=== PATIENT | male | born 1965 | race Caucasian/White ===

== ENCOUNTER 2021-05-10 15:27 | Emergency (ER) | payer OTHER ==
--- OUTSIDE RECORDS SUMMARY | 2021-05-10 15:31 | XMS REPORT | Continuity of Care Document ---
:1965 Author Organization [facility] t Address [address] [place] [address] Care Team Providers Name Role Phone Mg Abraham MD Attending Clinician Doctor Unassigned, [place] Attending Clinician Unavailable 2, Lab Attending Clinician Unavailable MANUEL Attending Clinician Unavailable MANUEL Attending Clinician Unavailable Payam ZHOU Attending Clinician Unavailable MANUEL Admitting Clinician Unavailable DR RAJAT Admitting Clinician Unavailable ALEXANDRU Admitting Clinician Unavailable Payam ZHOU Admitting Clinician Unavailable Payers Payer Name Policy Type Policy Number Effective Date Expiration Date S ource Problems Condition Condition Condition Status Onset Resolution Last Treating Co mments Source Name Details Category Date Date Treatment Clinician Date Vertigo Vertigo Problem Active [facility] 07-02 [facility] - 00:00: Memoria 00 l (LUF/LI V/SA) Dizziness Dizziness Problem Active [facility] - [facility] Memoria 00 l (LUF/LI V/SA) ACUTE ACUTE Problem Active [facility] St KIDNEY KIDNEY [facility] - INJURY INJURY Memoria l (LUF/LI V/SA) Chronic Chronic Problem Active [facility] St 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 disease disease l (LUF/LI V/SA) Morbid Morbid Problem Active [facility] St obesity obesity [facility] (LUF/LI V/SA) Chest pain Chest pain Problem [facility] ([facility]/SA) Sleep Sleep Problem Active [facility] St apnea apnea [facility] l (LUF/LI V/SA) Chronic Chronic Problem Active [facility] St congestive congestive [facility] - heart heart Memoria failure failure l (LUF/LI V/SA) Allergies, Adverse Reactions, Alerts Allergy Allergy Status Severity Reaction(s) Onset Inactive Treating Comm ents Source Name Type Date Date Clinician nitrofur DA Active [facility] Clear 00:00: Rayo 00 [facility] Social History Smoking Status Start Date Stop Date Source Current every day smoker [facility] (LUF/CASIMIRO/SA) Medications Ordered Filled Start Stop Current Ordering Indication Dosage Frequency Signature Comments Components Source Medication Medication Date Date Medication? Clinician (SIG) Name Name Allopurinol Allopurinol Yes 300mg QD [facility] 300 MG Oral 300 MG Oral 3-30 L ukes - Tablet Tablet 00:00: Memoria 00 l (LUF/LI V/SA) Allopurinol Allopurinol 2018- No 200mg QD [facility] 3- [facility] - 00:00: 00:00 Memoria 00 :00 l (LUF/LI V/SA) Allopurinol Allopurinol 2018- No 100mg QD [facility] 100 MG Oral 100 MG Oral 3-16 - [facility] - Tablet Tablet 00:00: 00:00 Memoria 00 :00 l (LUF/LI V/SA) 3 ML 3 ML Yes 1.8mg QD [facility] liraglutide liraglutide L ukes - 6 MG/ML Pen 6 MG/ML Pen M emoria Injector Injector l (LUF/LI V/SA) Acetaminoph Acetaminoph Yes pain 1tab QID [facility] en 325 MG / en 325 MG / L ukes - Hydrocodone Hydrocodone M emoria Bitartrate Bitartrate l 10 MG Oral 10 MG Oral (GITA F/LI Tablet Tablet V/SA) Albuterol Albuterol Yes shortness 3mL Q5H [facility] 0.833 MG/ML 0.833 MG/ML of breath [facility] - / / or wheezing Memoria Ipratropium Ipratropium l [place] (LUF/LI 0.167 MG/ML 0.167 MG/ML V /SA) Inhalant Inhalant Solution Solution Amiloride Amiloride Yes 5mg QD [facility] Hydrochlori Hydrochlori L ukes - de 5 MG de 5 MG Memoria Oral Tablet Oral Tablet l (LUF/LI V/SA) Aspirin Aspirin Yes 81mg QD [facility] - Memoria l (LUF/LI V/SA) Atenolol 50 Atenolol 50 Yes 50mg QD [facility] MG Oral MG Oral [facility] - Tablet Tablet Memoria l (LUF/LI V/SA) Bumetanide Bumetanide Yes 5:00 AM AND 3mg [facility] 8:00PM [facility] - Memoria l (LUF/LI V/SA) Bumetanide Bumetanide Yes [facility]mg [facility] 2 MG Oral 2 MG Oral [facility] - Tablet Tablet Memoria l (LUF/LI V/SA) eplerenone eplerenone Yes 25mg [facility] 25 MG Oral 25 MG Oral Andrews es - Tablet Tablet Memoria l (LUF/LI V/SA) Indomethaci Indomethaci Yes 50mg TID [facility] n 50 MG n 50 MG [facility] - Oral Oral Memoria Capsule Capsule l (LUF/LI V/SA) Lisinopril Lisinopril Yes 2.5mg QD [facility] - [facility] l (LUF/LI V/SA) Magnesium Magnesium Yes 400mg QD [facility] Oxide Oxide [facility] - [facility] l (LUF/LI V/SA) Metolazone Metolazone Yes 5mg QD [facility] 5 MG Oral 5 MG Oral [facility] - Tablet Tablet Memoria l (LUF/LI V/SA) Mupirocin Mupirocin Yes 1applic TID [facility] 20 MG/ML 20 MG/ML [facility] - Topical Topical Memoria Cream Cream l (LUF/LI V/SA) Nitroglycer Nitroglycer Yes chest pain .4mg [facility] in in [facility] - Memoria l (LUF/LI V/SA) Potassium Potassium Yes 100mEq TID [facility] Chloride Chloride [facility] - [facility] l (LUF/LI V/SA) pregabalin pregabalin Yes 150mg TID [facility] 150 MG Oral 150 MG Oral L ukes - Capsule Capsule Memoria l (LUF/LI V/SA) tizanidine tizanidine Yes muscle 4mg TID [facility] spasm [facility] - Memoria l (LUF/LI V/SA) Budesonide Budesonide No 2inh BID [facility] - [facility] (LUF/LI V/SA) Bupropion Bupropion No 150mg QD [facility] - [facility] l (LUF/LI V/SA) Diclofenac Diclofenac No 75mg BID [facility] (LUF/LI V/SA) Diclofenac Diclofenac No pain 75mg BID [facility] (LUF/LI V/SA) fluticasone fluticasone No 1inh BID [facility] (LUF/LI V/) Furosemide Furosemide No 80mg TID [facility] 80 MG Oral 80 MG Oral [facility] - Tablet Tablet Memoria l (LUF/LI V/) Meclizine Meclizine No 25mg QID [facility] t Hydrochlori Hydrochlori L ukes - de 25 MG de 25 MG Memoria Chewable Chewable l Tablet Tablet (LUF/LI V/) meloxicam meloxicam No 7.5mg QD [facility] (LUF/LI V/SA) Metolazone Metolazone No M-F only 2.5mg QD [facility] - [facility] l (LUF/LI V/SA) Potassium Potassium No 40mEq TID [facility] Chloride Chloride [facility] - [facility] (LUF/LI V/SA) Promethazin Promethazin No 25mg QID [facility] e e [facility] - Hydrochlori Hydrochlori M emoria de 25 MG de 25 MG l Oral Tablet Oral Tablet ( LUF/LI V/) salmeterol salmeterol No 1inh BID [facility] (LUF/LI V/SA) Spironolact Spironolact No 50mg QD C [facility] one 50 MG one 50 MG [facility] - Oral Tablet Oral Tablet M rossy l (LUF/LI V/SA) Vital Signs Vital Name Observation Time Observation Value Comments Source Body Temperature 2018-05-22 11:59:00 98.1 F [facility] (LUF/CASIMIRO/SA) Respiratory Rate 2018-05-22 11:59:00 20 /min [facility] (F/CASIMIRO/SA) O2% BldC Oximetry 2018-05-22 11:59:00 96 % [facility] (LUF/CASIMIRO/SA) BP Systolic 2018-05-22 11:59:00 120 mm[Hg] [facility] (LUF/CASIMIRO/SA) BP Diastolic 2018-05-22 11:59:00 59 mm[Hg] [facility] (LUF/CASIMIRO/SA) Weight Measured 2018-05-21 04:31:00 388.01 lbs [facility] (LUF/CASIMIRO/SA) Height 2018-05-20 06:20:00 72 in [facility] (LUF/CASIMIRO/SA) BMI (Body Mass Index) 2018-05-20 06:20:00 53.1 [facility] (F/CASIMIRO/SA) Height 2017-12-18 11:16:00 72 in [facility] (F/CASIMIRO/SA) Weight Measured 2017-12-18 11:16:00 388 lbs [facility] (LUF/CASIMIRO/SA) BMI (Body Mass Index) 2017-12-18 11:16:00 53.1 [facility] (F/CASIMIRO/SA) Procedures Procedure Date / Time Performed Performing Clinician [facility] e TOTAL KNEE ARTHROPLASTY 2018-05-20 00:00:00 [facility] (Left) [facility] (LUF/CASIMIRO/SA) REPL L KNEE JOINT SYNTH 2018-05-20 00:00:00 [facility] CMENTD OPEN [facility] (LUF/CASIMIRO/SA) BACK SX [facility] (LUF/CASIMIRO/SA) Repair of inguinal [facility] hernia [facility] (LUF/CASIMIRO/SA) RIGHT HAND FINGERS [facility] (LUF/CASIMIRO/SA) LEFT THUMB REATTACHED [facility] (LUF/CASIMIRO/SA) Encounters Start End Encounter Admission Attending Care Care Encounter Source Date/Time Date/Time Type Type Clinicians Facility Department ID 2021-05-03 2021-05-03 Telephone [facility] [id number] 00:00:00 00:00:00 Khadijahgisellconcepción Malhotra [id number] [place] 4.2.7.2.686 Professio [phone] formerly [facility] 059 [facility] 2021-04-07 2021-04-07 Orders Doctor ZEUS [id number] 00:00:00 00:00:00 Only Unassigned, NATALIA [id number] [place] [facility] 4.2.7.2.686 [phone] 009 2021-01-07 2021-01-07 Telephone [facility] [id number] 00:00:00 00:00:00 Khadijahgisellconcepción Malhotra [id number] [place] [id number] Professio [phone] [facility]9 [facility] 2021-01-05 2021-01-05 Dentist 2, Adc Lab [facility] [id number] 09:13:53 09:28:53 Visit Roscoe [id number] [place] [id number] Professio [phone] [address] 2021-01-05 2021-01-05 Office [facility] [id number] 08:39:21 09:09:39 Visit Khadijahgisellconcepción Malhotra [id number] [place] [id number] Professio [phone] [facility]9 [facility] 2020-07-07 2020-07-07 Outpatient [facility] [id number] [facility] 2020-07-05 2020-07-05 Outpatient [facility] [id number] [facility]00 [facility] 2020-07-01 2020-07-01 [facility] [id number] 2018-05-20 2018-05-22 UNI PRIM O MANUEL, [facility] [id number] 05:52:00 16:27:00 OSTEOARTHR WILLIE ENCARNACION Luandi - ITIS LT N, [address], (LUF[place] [address] 2018-05-20 2018-05-20 Inpatient CEMP JACKSON, [facility] [id number] 11:30:00 23:59:00 WILLIE [facility] [place] [address] (LUF/[address], V/[place]) [place] [address] 2018-04-11 2018-04-11 ABNORMAL 3 RAJAT, [facility] [id number] 09:15:00 23:59:00 RESULTS GABRIELLE Ramon ukes - LIVR N, [address] [place], [place] [address] 2017-12-31 2017-12-31 UNI PRIM O MANUEL, [facility] [id number] 06:48:00 23:59:00 OSTEOARTHR WILLIE ENCARNACION [facility] - ITIS LT N, [address], ([place] [address] 2017-12-19 2017-12-19 Inpatient JACKSON, [facility] [id number] 09:50:00 23:59:00 WILLIE [facility] [place] [address] (LUF/LI [address], V/SA) [place] [address] 2017-12-04 2017-12-04 INFLAMMATO O ALEXANDRU, [facility] [id number] 08:31:00 23:59:00 RY MOSHE RAYMOND Ramon ukes - POLYARTHRO N, [address], (LUF[place] [address] Results Test Description Test Time Test Comments Results Result [facility] e Comments - DUP VEIN ANGELICA 2020-08-28 15:04:00 [facility] 1965 Sex: M Name: LILA CHUNG [facility] : 1965 Age/S: 54 / M [address] [place] [address] Unit #: [id number] Loc: ELIEZER Patel [address] Phys: Vanessa Maloney Acct: [id number] Dis Date: Status: REG ER PHONE #: [phone] Exam Date: 08/28/2020 150 FAX #: [phone] Reason: ANGELICA LE SWELLING PAIN EXAMS: CPT CODE: [id number] DUP VEIN ANGELICA [id number] Patient Name: LILA CHUNG : 1965; Age: 54 years y/o Male MR: [id number] Study: - DUP VEIN ANGELICA 08/28/2020 12:56 PM Ordering Physician: Vanessa Maloney Clinical Indication: ; ANGELICA LE SWELLING PAIN Comparison: None FINDINGS: Compression duplex ultrasound of both lower extremities was performed from the inguinal through the infrageniculate popliteal regions. The visualized superficial and deep veins are patent and compressible without evidence of intraluminal thrombus. Satisfactory spontaneous and augmented flow is demonstrated in the visualized segments. Subcutaneous edema is seen in the bilateral lower legs. IMPRESSION: No evidence of deep vein thrombosis. SL: [id number] at 1504 Reported and signed by: Julius Dillard M.D. CC: Andrew Manning MD; Vanessa Maloney Technologist: Lilliam Gomes RDMS(AB) Trnscb Date/Time: 08/28/2020 (1502) [email or web address] Orig Print D/T: S: 08/28/2020 (1501) Probe: PAGE 1 Signed Report B-TYPE NATRIURETIC PEPTIDE 2020-08-28 13:48:00 Test Item Value Reference Range Interpretation Comme nts B-TYPE NATRIURETIC PEPTIDE (test code = BNP) 42.0 PG/ML 0-100 N - XR CHEST 1 [id number] 13:48:00 [facility] 1965 Sex: M FAX: Andrew Restrepo MD [phone] [place]: St: PRE FAX: Vanessa Maloney [phone] Name: LILA CHUNG [facility] : 1965 Age/S: 54/M [address] [place] [address] Unit #: [id number] Loc: [place] [address] Phys: Vanessa Maloney Acct: [id number] Dis Date: Status: PRE ER PHONE #: [phone] Exam Date: 08/28/2020 1332 FAX #: [phone] Reason: SWELLING BLE EXAMS: CPT CODE: [id number] XR CHEST 1 V 14010 Study: - XR CHEST 1 V 08/28/2020 12:56 PM Patient Name: LILA CHUNG MR: [id number] : 1965; Age: 54 years y/o Male Ordering Physician: Vanessa Maloney Clinical Indication: SWELLING BLE Comparison: August 20, 2020 x-rayFINDINGS LUNGS: The hypoinflated lungs are clear of consolidation, pleural effusion, and pneumothorax. HEART AND MEDIASTINUM: Normal size heart. LINES: None. OSSEOUS STRUCTURES: Mild spinal degenerative change without fracture, dislocation, or focal osseous lesion. OTHER: None. IMPRESSION: No acute abnormality as above discussed. SL: [id number] at 8923 Reported and signed by: Julius Dillard M.D. CC: Andrew Manning MD; Vanessa Maloney Technologist: Janet Torres, RT(R); Soumya Miner RT(R) Trnndrd Date/Time/By: 08/28/2020 (8017) : By: [email or web address] Orig Print D/T: S: 08/28/2020 (3015) PAGE 1 Signed ReportCBC W/AUTO [id number] 13:27:00 Test Item Value Reference Range Interpretation Comments WHITE BLOOD CELL (test code = 7.8 x10 3/uL 4.5-11.0 N WBC) RED BLOOD CELL (test code = 4.35 x10 6/uL 4.00-5.60 N RBC) HEMOGLOBIN (test code = HGB) 12.3 g/dL 12.5-16.9 L HEMATOCRIT (test code = HCT) 39.1 % 37.5-50.7 N MEAN CELL VOLUME (test code = 89.9 fL 81.0-99.0 N MCV) MEAN CELL HGB (test code = MCH) 28.3 pg 27.0-33.0 N MEAN CELL HGB CONCETRATION 31.5 g/dL 33.0-37.0 L (test code = MCHC) RED CELL DISTRIBUTION WIDTH CV 14.1 % 11.5-14.5 N (test code = RDW) RED CELL DISTRIBUTION WIDTH SD 46.2 fL 37.0-54.0 N (test code = RDW-SD) PLATELET COUNT (test code = 363 x10 3/uL 150-400 N PLT) MEAN PLATELET VOLUME (test code 9.6 fL 7.0-9.0 H = MPV) NEUTROPHIL % (test code = NT%) 56.6 % 56.0-77.0 N IMMATURE GRANULOCYTE % (test 0.4 % 0.0-2.0 N code = IG%) LYMPHOCYTE % (test code = LY%) 25.7 % 14.0-32.0 N MONOCYTE % (test code = MO%) 9.3 % 4.8-9.0 H EOSINOPHIL % (test code = EO%) 7.4 % 0.3-3.7 H BASOPHIL % (test code = BA%) 0.6 % 0.0-2.0 N NUCLEATED RBC % (test code = 0.0 % 0-0 N NRBC%) NEUTROPHIL # (test code = NT#) 4.39 x10 3/uL 2.0-7.6 N IMMATURE GRANULOCYTE # (test 0.03 x10 3/uL 0.00-0.03 N code = IG#) LYMPHOCYTE # (test code = LY#) 1.99 x10 3/uL 1.0-3.8 N MONOCYTE # (test code = MO#) 0.72 x10 3/uL 0.1-0.8 N EOSINOPHIL # (test code = EO#) 0.57 x10 3/uL 0.0-0.2 H BASOPHIL # (test code = BA#) 0.05 x10 3/uL 0.0-0.2 N NUCLEATED RBC # (test code = 0.00 x10 3/uL 0.0-0.1 N NRBC#) MANUAL DIFF REQUIRED (test code NO = MDIFF) COMPREHENSIVE METABOLIC [id number] 13:23:00 Test Item Value Reference Range Interpretation Comments SODIUM (test code = NA) 139 mEq/L 134-147 N POTASSIUM (test code = 4.3 mEq/L 3.4-5.0 N K) CHLORIDE (test code = 102 mEq/L 100-108 N CL) CARBON DIOXIDE (test 32 mEq/L 21-33 N code = CO2) ANION GAP (test code = 9 0-20 N GAP) GLUCOSE (test code = 132 mg/dL 70-110 H GLU) BLOOD UREA NITROGEN 25 mg/dL 7-18 H (test code = BUN) GLOMERULAR FILTRATION 77.3 90-95 L Units of measure = RATE (test code = GFR) ml/mi n/1.73 m2 CREATININE (test code = 1.0 mg/dL 0.6-1.3 N CREAT) TOTAL PROTEIN (test 6.9 g/dL 6.4-8.2 N code = PROT) ALBUMIN (test code = 3.30 g/dL 3.4-5.0 L ALB) CALCIUM (test code = 9.0 mg/dL 8.0-10.5 N CA) BILIRUBIN TOTAL (test 0.30 mg/dL 0.0-1.0 N code = BILT) SGOT/AST (test code = 18 IUnit/L 15-37 N AST) SGPT/ALT (test code = 18 IUnit/L 30-65 L ALT) ALKALINE PHOSPHATASE 124 IUnit/L 20-125 N TOTAL (test code = ALKP) [id number] 13:23:00 Test Item Value Reference Range Interpretation Comments TROPONIN-I < 0.006 ng/mL 0.000-0.045 N Negative: <= (test code = 0.045 Positive: TROPI) >= 0.046 Correl ation with serial results, other cardiac markers andclinical findings is nec essary to determine the clinicalsignifi cance of this result. Results using different metho dologies should not be c omparedto one another as patrizia titative results may belen y by method. COMPREHENSIVE METABOLIC [id number] 13:18:00 Test Item Value Reference Range Interpretation Comments SODIUM (test code = NA) mEq/L 134-147 POTASSIUM (test code = K) mEq/L 3.4-5.0 CHLORIDE (test code = CL) mEq/L 100-108 CARBON DIOXIDE (test code = CO2) mEq/L 21-33 ANION GAP (test code = GAP) 0-20 GLUCOSE (test code = GLU) mg/dL 70-110 BLOOD UREA NITROGEN (test code = mg/dL 7-18 BUN) GLOMERULAR FILTRATION RATE (test 90-95 code = GFR) CREATININE (test code = CREAT) mg/dL 0.6-1.3 TOTAL PROTEIN (test code = PROT) g/dL 6.4-8.2 ALBUMIN (test code = ALB) g/dL 3.4-5.0 CALCIUM (test code = CA) mg/dL 8.0-10.5 BILIRUBIN TOTAL (test code = BILT) mg/dL 0.0-1.0 SGOT/AST (test code = AST) IUnit/L 15-37 SGPT/ALT (test code = ALT) IUnit/L 30-65 ALKALINE PHOSPHATASE TOTAL (test IUnit/L 20-125 code = ALKP) [id number] 13:18:00 Test Item Value Reference Range Interpretation Comments TROPONIN-I < 0.006 ng/mL 0.000-0.045 N Negative: <= (test code = 0.045 Positive: TROPI) >= 0.046 Correl ation with serial results, other cardiac markers andclinical findings is nec essary to determine the clinicalsignifi cance of this result. Results using different metho dologies should not be c omparedto one another as patrizia titative results may belen y by method. CBC W/AUTO [id number] 13:02:00 Test Item Value Reference Range Interpretation Comments WHITE BLOOD CELL (test code = x10 3/uL 4.5-11.0 WBC) RED BLOOD CELL (test code = RBC) x10 6/uL 4.00-5.60 HEMOGLOBIN (test code = HGB) g/dL 12.5-16.9 HEMATOCRIT (test code = HCT) 39.1 % 37.5-50.7 N MEAN CELL VOLUME (test code = fL 81.0-99.0 MCV) MEAN CELL HGB (test code = MCH) pg 27.0-33.0 MEAN CELL HGB CONCETRATION (test g/dL 33.0-37.0 code = MCHC) RED CELL DISTRIBUTION WIDTH CV % 11.5-14.5 (test code = RDW) PLATELET COUNT (test code = PLT) 363 x10 3/uL 150-400 N NEUTROPHIL % (test code = NT%) % 56.0-77.0 LYMPHOCYTE % (test code = LY%) % 14.0-32.0 NEUTROPHIL # (test code = NT#) x10 3/uL 2.0-7.6 LYMPHOCYTE # (test code = LY#) x10 3/uL 1.0-3.8 MANUAL DIFF REQUIRED (test code = MDIFF) CBC W/O [id number] 07:25:00 Test Item Value Reference Range Interpretation Comments WHITE BLOOD CELL (test code = 12.1 x10 3/uL 4.5-11.0 H WBC) RED BLOOD CELL (test code = 4.87 x10 6/uL 4.00-5.60 N RBC) HEMOGLOBIN (test code = HGB) 13.8 g/dL 12.5-16.9 N HEMATOCRIT (test code = HCT) 44.1 % 37.5-50.7 N MEAN CELL VOLUME (test code = 90.6 fL 81.0-99.0 N MCV) MEAN CELL HGB (test code = MCH) 28.3 pg 27.0-33.0 N MEAN CELL HGB CONCETRATION 31.3 g/dL 33.0-37.0 L (test code = MCHC) RED CELL DISTRIBUTION WIDTH CV 14.4 % 11.5-14.5 N (test code = RDW) RED CELL DISTRIBUTION WIDTH SD 47.9 fL 37.0-54.0 N (test code = RDW-SD) PLATELET COUNT (test code = 300 x10 3/uL 150-400 N PLT) MEAN PLATELET VOLUME (test code 10.2 fL 7.0-9.0 H = MPV) CBC W/O [id number] 07:16:00 Test Item Value Reference Range Interpretation Comments WHITE BLOOD CELL (test code = x10 3/uL 4.5-11.0 WBC) RED BLOOD CELL (test code = RBC) x10 6/uL 4.00-5.60 HEMOGLOBIN (test code = HGB) 13.8 g/dL 12.5-16.9 N HEMATOCRIT (test code = HCT) 44.1 % 37.5-50.7 N MEAN CELL VOLUME (test code = fL 81.0-99.0 MCV) MEAN CELL HGB (test code = MCH) pg 27.0-33.0 MEAN CELL HGB CONCETRATION (test g/dL 33.0-37.0 code = MCHC) RED CELL DISTRIBUTION WIDTH CV % 11.5-14.5 (test code = RDW) PLATELET COUNT (test code = PLT) 300 x10 3/uL 150-400 N CBC W/O [id number] 08:12:00 Test Item Value Reference Range Interpretation Comments WHITE BLOOD CELL (test code = 10.5 x10 3/uL 4.5-11.0 N WBC) RED BLOOD CELL (test code = 4.90 x10 6/uL 4.00-5.60 N RBC) HEMOGLOBIN (test code = HGB) 13.9 g/dL 12.5-16.9 N HEMATOCRIT (test code = HCT) 44.4 % 37.5-50.7 N MEAN CELL VOLUME (test code = 90.6 fL 81.0-99.0 N MCV) MEAN CELL HGB (test code = MCH) 28.4 pg 27.0-33.0 N MEAN CELL HGB CONCETRATION 31.3 g/dL 33.0-37.0 L (test code = MCHC) RED CELL DISTRIBUTION WIDTH CV 14.6 % 11.5-14.5 H (test code = RDW) RED CELL DISTRIBUTION WIDTH SD 49.0 fL 37.0-54.0 N (test code = RDW-SD) PLATELET COUNT (test code = 337 x10 3/uL 150-400 N PLT) MEAN PLATELET VOLUME (test code 10.5 fL 7.0-9.0 H = MPV) CBC W/O [id number] 07:13:00 Test Item Value Reference Range Interpretation Comments WHITE BLOOD CELL (test code = x10 3/uL 4.5-11.0 WBC) RED BLOOD CELL (test code = RBC) x10 6/uL 4.00-5.60 HEMOGLOBIN (test code = HGB) 13.9 g/dL 12.5-16.9 N HEMATOCRIT (test code = HCT) 44.4 % 37.5-50.7 N MEAN CELL VOLUME (test code = fL 81.0-99.0 MCV) MEAN CELL HGB (test code = MCH) pg 27.0-33.0 MEAN CELL HGB CONCETRATION (test g/dL 33.0-37.0 code = MCHC) RED CELL DISTRIBUTION WIDTH CV % 11.5-14.5 (test code = RDW) PLATELET COUNT (test code = PLT) 337 x10 3/uL 150-400 N - XR KNEE 1 OR 2 V [id number] 11:04:00 [facility] [place]ENJIE HILLSDALEName: LILA CHUNG : 1965 Sex: M FAX: Andrew Restrepo MD [phone] [place]: St: [facility] FAX: David Nguyen Jr [phone] Name: LILA CHUNG [facility] [place] : 1965 Age/S: 54/M [address] [place] [address] Unit #: [id number] Loc: [place] [address] Phys: David Hinojosa Jr, MD Acct: [id number] Dis Date: Status: ADM IN PHONE #: [phone] Exam Date: 08/23/2020 1021 FAX #: [phone] Reason: TKA EXAMS: CPT CODE: [id number] XR KNEE 1 OR 2 V RT 19655 PROCEDURE: 2 views of the right knee INDICATION: 54-year-old male status post total kneearthroplasty COMPARISON: None. FINDINGS: Prior right total knee arthroplasty. The prostheses appear in expected alignment. No acute osseous fracture or dislocation identified. Soft tissue swelling, subcutaneous emphysema, and joint effusion/air noted. Anterior skin lowell present. IMPRESSION: 1. Right total knee arthroplasty with expected post surgical changes. SL: [id number] at 1104 Reported and signed by: Levi Terrell M.D. CC: Andrew Manning MD; David Hinojosa Jr, MD Technologist: Shakira Friedman RT(R) Trnscrd Date/Time/By: 08/23/2020 (6887) : By: [email or web address] Orig Print D/T: S: 08/23/2020 (8371) PAGE 1 Signed ReportNovel Coronavirus 2019 [id number] 03:56:00 Test Item Value Reference Range Interpretation Comments Novel Coronavirus Negative Negative Positive r esults are 2019 Inhouse (test indicativ e of the presence code = COVNONPUI) ofSARS-CoV -2 RNA, clinical correlation wit h patient historyand othe r diagnostic info rmation is necessary to determinepatien t infection status. Positiv e results do not rule out bacterial infection or co -infection with other viru ses. Negative result s do not preclude SARS-C oV-2 infection andsh ould not be used as the jose e basis for patient managementdecis ions. Negative result s must be combined with otherclinical observations, p atient history, and epidemiological information . Detection of SARS-CoV-2 RNA may be affe cted bysample collec tion methods, storag e conditions, and /or stageof infection. [place] l RNA mutations, vacc inations, antiviraltherap eutics, antibiotics, chemotherapeuti c orimmunosuppres ebonie drugs have not been e valuated for effectson d etection. Results are for the identification of SARS-CoV-2 RNA usingthe [facility] M2000 Sy stem under the FDA Emergen cy UseAuthorizatio n. The testing is perf ormed by personneltraine d in the procedures for the Akins M2000 molecular diagnostic SARS-CoV-2 assa y in vitro. - XR CHEST 2 [id number] 11:17:00 [facility] 1965 Sex: M FAX: Andrew Restrepo MD [phone] [place]: St: PRE FAX: David Nguyen Jr [phone] FAX: Tabatha Reyes Name: MICHELLE CHUNG [place] : 1965 Age/S: 54/M [address] [place] [address] Unit #: [id number] Loc: [place] [address] Phys: Tabatha Reyes NP Acct: [id number] Dis Date: Status: PRE SDC PHONE #: [phone] Exam Date: 08/20/2020 1019 FAX #: [phone] Reason: PRE-OP TKA EXAMS: CPT CODE: [id number] XR CHEST 2 V 95154 CLINICAL HISTORY: PRE-OP TKA COMPARISON: December 30, 2015 PA and lateral films of the chest demonstrate that heart size is normal. There is evidence of interstitial opacities present in both lungs, unchanged since previous examination. No evidence of pulmonary consolidation, pneumothorax or pleural effusion is seen. Degenerative changes are present in dorsal spine with osteophytes. IMPRESSION: 1. Persistent interstitial pulmonary opacities in both lungs, unchanged since previous examination. 2. No evidence of pulmonary consolidation, pleural effusionor pneumothorax. at 1117 Reported and signed by: Wero Gordon M.D. CC: Andrew Manning MD; David Hinojosa Jr, MD; Tabatha Reyes NP Technologist: Shakira Friedman RT(R) Trnscrd Date/Time/By: 08/20/2020 (8307) : By: Jeanmarie Orig Print D/T: S: 08/20/2020 (9302) PAGE 1 Signed ReportBASIC METABOLIC [id number] 10:41:00 Test Item Value Reference Range Interpretation Comments SODIUM (test code = NA) 139 mEq/L 134-147 N POTASSIUM (test code = 4.5 mEq/L 3.4-5.0 N K) CHLORIDE (test code = 106 mEq/L 100-108 N CL) CARBON DIOXIDE (test 28 mEq/L 21-33 N code = CO2) ANION GAP (test code = 10 0-20 N GAP) GLUCOSE (test code = 118 mg/dL 70-110 H GLU) BLOOD UREA NITROGEN 20 mg/dL 7-18 H (test code = BUN) GLOMERULAR FILTRATION 69.2 90-95 L Units of measure = RATE (test code = GFR) ml/mi n/1.73 m2 CREATININE (test code = 1.1 mg/dL 0.6-1.3 N CREAT) CALCIUM (test code = 8.5 mg/dL 8.0-10.5 N CA) CBC W/AUTO [id number] 10:18:00 Test Item Value Reference Range Interpretation Comments WHITE BLOOD CELL (test code = 8.6 x10 3/uL 4.5-11.0 N WBC) RED BLOOD CELL (test code = 5.32 x10 6/uL 4.00-5.60 N RBC) HEMOGLOBIN (test code = HGB) 15.0 g/dL 12.5-16.9 N HEMATOCRIT (test code = HCT) 48.8 % 37.5-50.7 N MEAN CELL VOLUME (test code = 91.7 fL 81.0-99.0 N MCV) MEAN CELL HGB (test code = MCH) 28.2 pg 27.0-33.0 N MEAN CELL HGB CONCETRATION 30.7 g/dL 33.0-37.0 L (test code = MCHC) RED CELL DISTRIBUTION WIDTH CV 14.5 % 11.5-14.5 N (test code = RDW) RED CELL DISTRIBUTION WIDTH SD 48.3 fL 37.0-54.0 N (test code = RDW-SD) PLATELET COUNT (test code = 335 x10 3/uL 150-400 N PLT) MEAN PLATELET VOLUME (test code 9.8 fL 7.0-9.0 H = MPV) NEUTROPHIL % (test code = NT%) 62.0 % 56.0-77.0 N IMMATURE GRANULOCYTE % (test 0.3 % 0.0-2.0 N code = IG%) LYMPHOCYTE % (test code = LY%) 22.4 % 14.0-32.0 N MONOCYTE % (test code = MO%) 8.1 % 4.8-9.0 N EOSINOPHIL % (test code = EO%) 6.4 % 0.3-3.7 H BASOPHIL % (test code = BA%) 0.8 % 0.0-2.0 N NUCLEATED RBC % (test code = 0.0 % 0-0 N NRBC%) NEUTROPHIL # (test code = NT#) 5.32 x10 3/uL 2.0-7.6 N IMMATURE GRANULOCYTE # (test 0.03 x10 3/uL 0.00-0.03 N code = IG#) LYMPHOCYTE # (test code = LY#) 1.93 x10 3/uL 1.0-3.8 N MONOCYTE # (test code = MO#) 0.70 x10 3/uL 0.1-0.8 N EOSINOPHIL # (test code = EO#) 0.55 x10 3/uL 0.0-0.2 H BASOPHIL # (test code = BA#) 0.07 x10 3/uL 0.0-0.2 N NUCLEATED RBC # (test code = 0.00 x10 3/uL 0.0-0.1 N NRBC#) MANUAL DIFF REQUIRED (test code NO = MDIFF) HISTOLOGY [id number] 11:55:00 [address] [place], [place] [address]Jcvzk: [phone] YFSW #: [id number] Sprinkler Driver: Prasanna Love M.D.Surgical Pathology Consultation ReportPatient Name: LILA CHUNG Case #: [id number] Med. Rec. #: [id number]: CASIMIRO-CASIMIRO Surgery Date: 05/20/2018 : 1965 (Age: 52) Received: 05/20/2018 Gender: M Copy to : Reported: 05/24/2018Physician(s): Willie Jackson Specimen(s) ReceivedA: Left knee bone and tissue Final Pathologic DiagnosisBone and soft tissue of left knee, knee replacement:- ARTICULAR DEGENERATIVE CHANGES, CLINICAL HISTORY OFOSTEOARTHRITIS. Electronically Signed Out /05/24/2018 Prasanna Love MD, Board Certified in Anatomic Pathology Clinical HistoryLeft knee unilateral primary osteoarthritis.Gross DescriptionThe specimen is labeled bone and soft tissue of left knee. Multiplefragmentsof bone with attached fibrocartilaginous tissue measuring 14.5 x 13 x upto 4cm in aggregate are received. The medial and lateral condyles as well asthetibial plateau are identified. There is osteophyte formation as well aseburnation seen along the articular surfaces. Client Partner sections ofthebone and the soft tissue are submitted in a cassette fordecalcification. 05/21/2018 Prasanna Love MD, Board Certified in Anatomic Pathology Microscopic DescriptionMicroscopic examination of the boneand soft tissue of the left kneerevealsarticular cartilage overlying trabecular bone. The articular cartilageshowsareas of chondrocyte cloning, myxoid degeneration as well as somefibrillation. The fibrocartilaginous tissue also shows areas of myxoiddegeneration.Billing Fee Code(s): A; 47096, 41005 [id number] 13:43:00 Test Item Value Reference Range Interpretation Comments Potassium (test code = K) 3.3 mmol/l 3.5-5.0 L [id number] 08:27:00 Test Item Value Reference Range Interpretation Comments Magnesium (test code = MG) 2.0 mg/dl 1.6-2.3 [id number] 08:27:00 Test Item Value Reference Range Interpretation Comments Potassium (test code = K) 4.0 mmol/l 3.5-5.0 [id number] 07:13:00 Test Item Value Reference Range Interpretation Comments Glucose (test code 117 mg/dl 75-110 H = GLU) BUN (test code = 30.0 mg/dl 6.0-17.0 H BUN) Creatinine (test 0.9 mg/dl 0.4-1.2 code = CREA) Sodium (test code = 132 mmol/l 137-145 L NA) Potassium (test 3.4 mmol/l 3.5-5.0 L code = K) Chloride (test code 88 mmol/l 98-107 L = CL) CO2 (test code = 38 mmol/l 22-30 H CO2) Calcium (test code 8.7 mg/dl 8.4-10.2 = CALC) EGFR if >60 [place] (test code mL/min/1.73m\\ = EGFRAA) S\\2 EGFR if Non- >60 Estimate d Glomerular [place] (test code mL/min/1.73m\\ Filtrat ion Rate (eGFR) = EGFRNA) S\\2 Reference Inter vals Decision Points for 18 years and older and average body ma ss: >= 60 Does not exc lude kidney disease. 30 - 59 Suggests modera te chronic kidney disease and indicat es the need for furthe r investigation including asses sment of proteinuria and cardiovascular factors. < 30 Usually in dicates a need for refe rral for assessment and management of c hronic kidney failure. CBC WITH AUTO [id number] 05:36:00 Test Item Value Reference Range Interpretation Comments WBC (test code = 12.16 4.80-10.80 H WBC) 10\\S\\3/ul RBC (test code = 4.73 10\\S\\6/ul 4.70-6.10 RBC) Hemoglobin (test 12.6 gm/dl 14.0-18.0 L code = HGB) Hematocrit (test 40.5 % 42.0-50.0 L code = HCT) MCV (test code = 85.6 fL 80.0-94.0 MCV) MCH (test code = 26.6 pg 27.0-31.0 L MCH) MCHC (test code = 31.1 gm/dl 33.0-37.0 L MCHC) RDW (test code = 15.0 % 11.5-14.5 H RDWVC) Platelet (test code 360 10\\S\\3/ul 130-400 = PLT) MPV (test code = 9.7 fL 7.4-10.4 A "NOT MEASUR ED" MPV) RESULTS ARE DIS PLAYED WHEN THE INSTRU MENT HAS A SUPPRESSE D OR UNREPORTABLE RE SULT. THIS WILL MOST OFTEN HAPPEN WITH THE MPV WHEN THERE IS A N ABNORMAL PLATEL ET DISTRIBUTION DU E TO A CRITICAL LOW VA LUE OR PLATELET CLUMPI NG. THE RDW MAY BE SUPPRESSED IF T HERE ARE MULTIPLE PE AKS PRESENT ON THE RBC HISTOGRAM. IN THIS CASE, A MANUAL REVIEW OF THE SLIDE WI LL BE PERFORMED, AND RBC MORPHOLOGY WILL BE NOTED ON THE RE PORT. NE% (test code = 65.8 % 42.0-75.0 NE) LY% (test code = 20.0 % 13.0-42.0 LY) MO% (test code = 10.3 % 4.0-14.0 MO) EO% (test code = 3.2 % 1.0-5.0 EO) BA% (test code = 0.2 % 0.0-3.0 BA) IG% (test code = 0.5 % 0.0-0.4 H IG%) [id number] 06:59:00 Test Item Value Reference Range Interpretation Comments Glucose (test code 148 mg/dl 75-110 H = GLU) BUN (test code = 54.0 mg/dl 6.0-17.0 H BUN) Creatinine (test 1.2 mg/dl 0.4-1.2 code = CREA) Sodium (test code = 133 mmol/l 137-145 L NA) Potassium (test 3.4 mmol/l 3.5-5.0 L code = K) Chloride (test code 92 mmol/l 98-107 L = CL) CO2 (test code = 33 mmol/l 22-30 H CO2) Calcium (test code 8.4 mg/dl 8.4-10.2 = CALC) EGFR if >60 [place] (test code mL/min/1.73m\\ = EGFRAA) S\\2 EGFR if Non- >60 Estimate d Glomerular [place] (test code mL/min/1.73m\\ Filtrat ion Rate (eGFR) = EGFRNA) S\\2 Reference Inter vals Decision Points for 18 years and older and average body ma ss: >= 60 Does not exc lude kidney disease. 30 - 59 Suggests modera te chronic kidney disease and indicat es the need for furthe r investigation including asses sment of proteinuria and cardiovascular factors. < 30 Usually in dicates a need for refe rral for assessment and management of c hronic kidney failure. X 3 daysCBC WITH AUTO [id number] 06:23:00 Test Item Value Reference Range Interpretation Comments WBC (test code = 13.40 4.80-10.80 H WBC) 10\\S\\3/ul RBC (test code = 4.75 10\\S\\6/ul 4.70-6.10 RBC) Hemoglobin (test 12.6 gm/dl 14.0-18.0 L code = HGB) Hematocrit (test 40.4 % 42.0-50.0 L code = HCT) MCV (test code = 85.1 fL 80.0-94.0 MCV) MCH (test code = 26.5 pg 27.0-31.0 L MCH) MCHC (test code = 31.2 gm/dl 33.0-37.0 L MCHC) RDW (test code = 15.2 % 11.5-14.5 H RDWVC) Platelet (test code 382 10\\S\\3/ul 130-400 = PLT) MPV (test code = 10.1 fL 7.4-10.4 A "NOT MEASUR ED" MPV) RESULTS ARE DIS PLAYED WHEN THE INSTRU MENT HAS A SUPPRESSE D OR UNREPORTABLE RE SULT. THIS WILL MOST OFTEN HAPPEN WITH THE MPV WHEN THERE IS A N ABNORMAL PLATEL ET DISTRIBUTION DU E TO A CRITICAL LOW VA LUE OR PLATELET CLUMPI NG. THE RDW MAY BE SUPPRESSED IF T HERE ARE MULTIPLE PE AKS PRESENT ON THE RBC HISTOGRAM. IN THIS CASE, A MANUAL REVIEW OF THE SLIDE WI LL BE PERFORMED, AND RBC MORPHOLOGY WILL BE NOTED ON THE RE PORT. NE% (test code = 69.9 % 42.0-75.0 NE) LY% (test code = 17.3 % 13.0-42.0 LY) MO% (test code = 11.1 % 4.0-14.0 MO) EO% (test code = 0.9 % 1.0-5.0 L EO) BA% (test code = 0.2 % 0.0-3.0 BA) IG% (test code = 0.6 % 0.0-0.4 H IG%) X 3 daysCBC WITH AUTO [id number] 12:49:00 Test Item Value Reference Range Interpretation Comments WBC (test code = WBC) 15.64 10\\S\\3/ul 4.80-10.80 H RBC (test code = RBC) 5.33 10\\S\\6/ul 4.70-6.10 Hemoglobin (test code = HGB) 14.3 gm/dl 14.0-18.0 Hematocrit (test code = HCT) 44.3 % 42.0-50.0 MCV (test code = MCV) 83.1 fL 80.0-94.0 MCH (test code = MCH) 26.8 pg 27.0-31.0 L MCHC (test code = MCHC) 32.3 gm/dl 33.0-37.0 L RDW (test code = RDWVC) 15.4 % 11.5-14.5 H Platelet (test code = PLT) 461 10\\S\\3/ul 130-400 H MPV (test code = MPV) 10.3 fL 7.4-10.4 A NE% (test code = NE) 78.6 % 42.0-75.0 H LY% (test code = LY) 12.0 % 13.0-42.0 L MO% (test code = MO) 7.0 % 4.0-14.0 EO% (test code = EO) 1.4 % 1.0-5.0 BA% (test code = BA) 0.3 % 0.0-3.0 IG% (test code = IG%) 0.7 % 0.0-0.4 H To be drawn in [id number] 10:59:00 Test Item Value Reference Range Interpretation Comments Glucose (test code 113 mg/dl 75-110 H = GLU) BUN (test code = 56.0 mg/dl 6.0-17.0 H BUN) Creatinine (test 1.8 mg/dl 0.4-1.2 H code = CREA) Sodium (test code = 134 mmol/l 137-145 L NA) Potassium (test 3.8 mmol/l 3.5-5.0 code = K) Chloride (test code 92 mmol/l 98-107 L = CL) CO2 (test code = 33 mmol/l 22-30 H CO2) Calcium (test code 8.6 mg/dl 8.4-10.2 = CALC) EGFR if 51 [place] (test code mL/min/1.73m\\ = EGFRAA) S\\2 EGFR if Non- 42 Estimate d Glomerular [place] (test code mL/min/1.73m\\ Filtrat ion Rate (eGFR) = EGFRNA) S\\2 Reference Inter vals Decision Points for 18 years and older and average body ma ss: >= 60 Does not exc lude kidney disease. 30 - 59 Suggests modera te chronic kidney disease and indicat es the need for furthe r investigation including asses sment of proteinuria and cardiovascular factors. < 30 Usually in dicates a need for refe rral for assessment and management of c hronic kidney failure. To be drawn in PACUXR KNEE 1-2 [id number] 10:39:02[facility]:History: PostopThere are no prior studies for comparison. A total knee replacementis present.The hardware is intact. Skin lowell overlie the anterior knee.Impression: Status post left knee arthroplasty.This final report was electronically signed by Dr Omid Layton MD 05/20/201810:32 AMDictated By: OMID LAYTONDate: 05/20/2018 10:38MRSA [id number] 07:36:00 Test Item Value Reference Range Interpretation Comments Methicillin Resistant Staphylococcus Positive Negative A Aureus Screening (test code = MRSA) MRSA [id number] 07:36:00 Test Item Value Reference Range Interpretation Comments Methicillin Resistant Staphylococcus Negative Negative N Aureus Screening (test code = MRSA) TYPE & [id number] 15:53:00 Test Item Value Reference Range Interpretation Comments ABO Blood Type (test code = ABO) A Rh (test code = RH) Positive Antibody Screen (test code = ABSCR) Negative Negative N [id number] 14:52:00 Test Item Value Reference Range Interpretation Comments Glucose (test code 125 mg/dl 75-110 H = GLU) BUN (test code = 34.0 mg/dl 6.0-17.0 H BUN) Creatinine (test 1.2 mg/dl 0.4-1.2 code = CREA) Sodium (test code = 135 mmol/l 137-145 L NA) Potassium (test 3.1 mmol/l 3.5-5.0 L code = K) Chloride (test code 91 mmol/l 98-107 L = CL) CO2 (test code = 34 mmol/l 22-30 H CO2) Calcium (test code 9.5 mg/dl 8.4-10.2 = CALC) T Protein (test 8.0 gm/dl 5.1-8.7 code = TP) Albumin (test code 3.6 gm/dl 3.5-4.6 = ALB) A/G Ratio (test 0.8 % 1.1-2.2 L code = AGRAT) AST (SGOT) (test 10 U/L 11-36 L code = AST) ALT (SGPT) (test 24 U/L 11-40 code = ALT) Alkaline Phos (test 134 U/L 47-114 H code = ALKP) Total Bilirubin 0.2 mg/dl 0.2-1.2 (test code = TBIL) Globulin (test code 4.4 gm/dl 2.3-3.5 H = GLOBU) Calcium, Corrected 9.8 mg/dl 8.4-10.2 Various f ormulas exist (test code = for corrected s hortensia CALCCORR) calcium results , each yielding differ ent values. This corrected resul t was based on the fo rmula: Corrected Calci um = SerumCalcium + [0.8 * ( 4 - SerumAlbu min)] EGFR if >60 [place] (test code mL/min/1.73m\\ = EGFRAA) S\\2 EGFR if Non- >60 Estimate d Glomerular [place] (test code mL/min/1.73m\\ Filtrat ion Rate (eGFR) = EGFRNA) S\\2 Reference Inter vals Decision Points for 18 years and older and average body ma ss: >= 60 Does not exc lude kidney disease. 30 - 59 Suggests modera te chronic kidney disease and indicat es the need for furthe r investigation including asses sment of proteinuria and cardiovascular factors. < 30 Usually in dicates a need for refe rral for assessment and management of c hronic kidney failure. PT AND [id number] 14:37:00 Test Item Value Reference Range Interpretation Comments Protime (test code 11.1 seconds 9.0-11.8 = PT) INR (test code = 1.1 0.9-1.1 INR results are INR) intended ONLY t o monitor Oral Anticoagulant t herapy in stablized pa tients. The INR Therape utic Range is 2.0 - 3.0 Patients with a mechanical hear t, the INR Range is 2. 5 - 3.5 [id number] 14:37:00 Test Item Value Reference Range Interpretation Comments aPTT (test code = PTT) 30.5 seconds 25.3-35.7 CBC (HEMOGRAM ONLY)[id number] 14:17:00 Test Item Value Reference Range Interpretation Comments WBC (test code = 11.38 4.80-10.80 H WBC) 10\\S\\3/ul RBC (test code = 5.85 10\\S\\6/ul 4.70-6.10 RBC) Hemoglobin (test 15.7 gm/dl 14.0-18.0 code = HGB) Hematocrit (test 48.9 % 42.0-50.0 code = HCT) MCV (test code = 83.6 fL 80.0-94.0 MCV) MCH (test code = 26.8 pg 27.0-31.0 L MCH) MCHC (test code = 32.1 gm/dl 33.0-37.0 L MCHC) RDW (test code = 14.7 % 11.5-14.5 H RDWVC) Platelet (test code 430 10\\S\\3/ul 130-400 H = PLT) MPV (test code = 9.9 fL 7.4-10.4 A "NOT MEASUR ED" MPV) RESULTS ARE DIS PLAYED WHEN THE INSTRU MENT HAS A SUPPRESSE D OR UNREPORTABLE RE SULT. THIS WILL MOST OFTEN HAPPEN WITH THE MPV WHEN THERE IS A N ABNORMAL PLATEL ET DISTRIBUTION DU E TO A CRITICAL LOW VA LUE OR PLATELET CLUMPI NG. THE RDW MAY BE SUPPRESSED IF T HERE ARE MULTIPLE PE AKS PRESENT ON THE RBC HISTOGRAM. IN THIS CASE, A MANUAL REVIEW OF THE SLIDE WI LL BE PERFORMED, AND RBC MORPHOLOGY WILL BE NOTED ON THE RE PORT. URINALYSIS WITHOUT [id number] 14:16:00 Test Item Value Reference Range Interpretation Comments Color (test code = UCOLR) LT. YELLOW Clarity (test code = UCLAR) CLEAR Glucose (test code = UGLUC) NEGATIVE NEGATIVE N Bilirubin (test code = UBILI) NEGATIVE NEGATIVE N Ketones (test code = UKET) NEGATIVE NEGATIVE N Specific [place] (test code = <=1.005 1.005-1.030 A USPGR) Blood (test code = UBLD) TRACE-INTACT NEGATIVE A PH (test code = UPH) 7.0 4.5-8.0 A Protein (test code = UPROT) NEGATIVE NEGATIVE N Urobilinogen (test code = U 0.2 >0.2 N UROB) Nitrite (test code = UNITR) NEGATIVE NEGATIVE N Leukocyte Esterase (test code = NEGATIVE NEGATIVE N ULEUK) US HEPATIC- Liver/ [id number] 10:23:20RIGHT UPPER QUADRANT ULTRASOUND:DATE: 04/11/2018INDICATION: Abnormal Results Of Liver Function StudiesDISCUSSION:The liver is enlarged shows increased echogenicity compatible with fattyinfiltration. Local fatty sparing is noted adjacent to the gallbladder. There isno intrahepatic biliary duct dilatation. Hepatopedal flow is noted in the portalvein. The gallbladder is unremarkable. No sonographic Woods's sign waselicited. The common duct is not dilated.The visualized portions of the pancreas and rightkidney show no significantabnormality. The IVC and aorta were obscured. There is no ascites in the rightupper quadrant.IMPRESSION:Hepatomegaly with hepatic steatosis. Portions of the abdomen were obscured bygas.This final report was electronically signed by Dr Omid Lyaton MD 04/11/201810:17 AMDictated By: OMID LAYTONDate: 04/11/2018 10:23MRSA [id number] 08:34:00 Test Item Value Reference Range Interpretation Comments Methicillin Resistant Staphylococcus Negative Negative N Aureus Screening (test code = MRSA) MRSA [id number] 08:34:00 Test Item Value Reference Range Interpretation Comments Methicillin Resistant Staphylococcus Negative Negative N Aureus Screening (test code = MRSA) [id number] 14:51:00 Test Item Value Reference Range Interpretation Comments Glucose (test code 101 mg/dl 75-110 = GLU) BUN (test code = 21.0 mg/dl 6.0-17.0 H BUN) Creatinine (test 1.1 mg/dl 0.4-1.2 code = CREA) Sodium (test code = 143 mmol/l 137-145 NA) Potassium (test 4.6 mmol/l 3.5-5.0 code = K) Chloride (test code 98 mmol/l 98-107 = CL) CO2 (test code = 31 mmol/l 22-30 H CO2) Anion Gap (test 14 code = GAP) Calcium (test code 9.9 mg/dl 8.4-10.2 = CALC) T Protein (test 7.1 gm/dl 5.1-8.7 code = TP) Albumin (test code 4.0 gm/dl 3.5-4.6 = ALB) A/G Ratio (test 1.3 % 1.1-2.2 code = AGRAT) AST (SGOT) (test 37 U/L 11-36 H code = AST) ALT (SGPT) (test 79 U/L 11-40 H code = ALT) Alkaline Phos (test 114 U/L 47-114 code = ALKP) Total Bilirubin 0.2 mg/dl 0.2-1.2 (test code = TBIL) Globulin (test code 3.1 gm/dl 2.3-3.5 = GLOBU) Calcium, Corrected 9.9 mg/dl 8.4-10.2 Various f ormulas exist (test code = for corrected s hortensia CALCCORR) calcium results , each yielding differ ent values. This corrected resul t was based on the fo rmula: Corrected Calci um = SerumCalcium + [0.8 * ( 4 - SerumAlbu min)] EGFR if >60 [place] (test code mL/min/1.73m\\ = EGFRAA) S\\2 EGFR if Non- >60 Estimate d Glomerular [place] (test code mL/min/1.73m\\ Filtrat ion Rate (eGFR) = EGFRNA) S\\2 Reference Inter vals Decision Points for 18 years and older and average body ma ss: >= 60 Does not exc lude kidney disease. 30 - 59 Suggests modera te chronic kidney disease and indicat es the need for furthe r investigation including asses sment of proteinuria and cardiovascular factors. < 30 Usually in dicates a need for refe rral for assessment and management of c hronic kidney failure. XR CHEST 2 PA [id number] 14:42:41EXAMINATION: XR CHEST 2 PA LATERALINDICATION: PREOP TESTINGCOMPARISON: 07/02/17.FINDINGS:TUBES andLINES: None.LUNGS: Diffuse coarsening of the pulmonary interstitium. There is no evidenceof pneumonia or pulmonary edema.PLEURA: No pleural effusion or pneumothorax.HEART AND MEDIASTINUM: The cardiac silhouette is moderately enlarged.BONES AND SOFT TISSUES: No acute osseous lesion.UPPER ABDOMEN: No free air under the diaphragm.IMPRESSION:Diffuse coarsening of the pulmonary interstitium suggestive of interstitial lungdisease and/or interstitial edema in the proper clinical setting, unchanged.Cardiomegaly without pulmonary edema.This final report was electronically signed by Dr Ignacio Gallardo MD 12/18/20172:36 PMDictated By: IGNACIO GALLARDODate: 12/18/2017 14:42TYPE & [id number] 12:54:00 Test Item Value Reference Range Interpretation Comments ABO Blood Type (test code = ABO) A Rh (test code = RH) Positive Antibody Screen (test code = ABSCR) Negative Negative N URINALYSIS WITHOUT [id number] 12:39:00 Test Item Value Reference Range Interpretation Comments Color (test code = UCOLR) LT. YELLOW Clarity (test code = UCLAR) CLEAR Glucose (test code = UGLUC) NEGATIVE NEGATIVE N Bilirubin (test code = UBILI) NEGATIVE NEGATIVE N Ketones (test code = UKET) NEGATIVE NEGATIVE N Specific [place] (test code = 1.015 1.005-1.030 A USPGR) Blood (test code = UBLD) TRACE-LYSED NEGATIVE A PH (test code = UPH) 6.0 4.5-8.0 A Protein (test code = UPROT) NEGATIVE NEGATIVE N Urobilinogen (test code = U UROB) 0.2 >0.2 N Nitrite (test code = UNITR) NEGATIVE NEGATIVE N Leukocyte Esterase (test code = NEGATIVE NEGATIVE N ULEUK) PT AND [id number] 12:38:00 Test Item Value Reference Range Interpretation Comments Protime (test code 10.4 seconds 9.0-11.8 = PT) INR (test code = 1.0 0.9-1.1 INR results are INR) intended ONLY t o monitor Oral Anticoagulant t herapy in stablized pa tients. The INR Therape utic Range is 2.0 - 3.0 Patients with a mechanical hear t, the INR Range is 2. 5 - 3.5 [id number] 12:38:00 Test Item Value Reference Range Interpretation Comments aPTT (test code = PTT) 27.3 seconds 25.3-35.7 CBC (HEMOGRAM ONLY)2017-12-18 12:19:00 Test Item Value Reference Range Interpretation Comments WBC (test code = 14.49 4.80-10.80 H WBC) 10\\S\\3/ul RBC (test code = 5.30 10\\S\\6/ul 4.70-6.10 RBC) Hemoglobin (test 14.6 gm/dl 14.0-18.0 code = HGB) Hematocrit (test 47.2 % 42.0-50.0 code = HCT) MCV (test code = 89.1 fL 80.0-94.0 MCV) MCH (test code = 27.5 pg 27.0-31.0 MCH) MCHC (test code = 30.9 gm/dl 33.0-37.0 L MCHC) RDW (test code = 15.2 % 11.5-14.5 H RDWVC) Platelet (test code 452 10\\S\\3/ul 130-400 H = PLT) MPV (test code = 9.5 fL 7.4-10.4 A "NOT MEASUR ED" MPV) RESULTS ARE DIS PLAYED WHEN THE INSTRU MENT HAS A SUPPRESSE D OR UNREPORTABLE RE SULT. THIS WILL MOST OFTEN HAPPEN WITH THE MPV WHEN THERE IS A N ABNORMAL PLATEL ET DISTRIBUTION DU E TO A CRITICAL LOW VA LUE OR PLATELET CLUMPI NG. THE RDW MAY BE SUPPRESSED IF T HERE ARE MULTIPLE PE AKS PRESENT ON THE RBC HISTOGRAM. IN THIS CASE, A MANUAL REVIEW OF THE SLIDE WI LL BE PERFORMED, AND RBC MORPHOLOGY WILL BE NOTED ON THE RE PORT. HLA-B27 [id number] 10:42:00 Test Item Value Reference Range Interpretation Comments HLA-B27 (test Negative HLA-B*27 Negat fernanda B27 allele code = [id number]) interpretatio n for all loci based on IMGT/H LA database version 3.27 is test was developed and i ts performance chivo racteristics determined by Yenny Hussein. It has not been cl eared or approved by the Food and Drug Administra tion. [facility] CLIA ID Number [id number] This test was p erformed using PCR (Poly merase Chain Reaction)/SSOP (Sequence Specific Oligon ucleotide Probes) techniq ue. SBT (Sequence Based Typing) and/or SSP (Seq uence Specific Primer s) may be used as supplem ental methods when necessary. Please contact [facility] Service at [phone] if you have any questi ons. Director of HLA Laboratory Dr Rk medrano, PhD PERFORMED AT: [address] [facility] [address], [place] [id number] LINE PREP COOK: Rk Llanos, PhD PHONE: [phone] ANTIBODIES IGG/IGA 2017-12-07 13:27:00 Test Item Value Reference Range Interpretation Comments CCP ANTIBODIES IGG/IGA 3 units 0-19 N (test code = 273357) Nega tive <20 Weak positive 2 0 - 39 Moderate posi tive 40 - 59 Stro ng positive >59 URIC [id number] 10:18:00 Test Item Value Reference Range Interpretation Comments Uric Acid (test code = URICA) 8.7 mg/dl 2.4-7.2 H XR HAND [id number] 10:06:25Left hand 2 views:INDICATION: Left hand painFINDINGS: No fracture or dislocation is identified. The joint spaces arepreserved. The soft tissues show no significant abnormality.IMPRESSION:No significantbony or joint abnormality.This final report was electronically signed by Dr Omid Layton MD 12/04/201710:00 AMDictated By: Carin LAYTONte: 12/04/2017 10:06XR HAND [id number] 10:05:25Right hand 2 views:History: Right hand pain, chronicThere are no prior studies for comparison. No fracture or dislocation isidentified. The scapholunate interval appears slightly widened and there isproximal migration of the capitate with slight volar tilting of the lunate. Theappearance suggests a SLAC wrist. Dedicated 3 view examination of the wrist isrecommended for more complete evaluation. The more distal aspect of the hand isunremarkable.Impression: Findings suggesting SLAC wrist as noted. No a cute fracture.This final report was electronically signed by Dr Omid Layton MD 12/04/20179:59 AMDictated By: Maco LAYTON: 12/04/2017 10:05 URINALYSIS WITH [id number] 20:36:00 Test Item Value Reference Range Interpretation Comments Color (test code = UCOLR) Yellow Clarity (test code = UCLAR) CLEAR Glucose (test code = UGLUC) NEGATIVE NEGATIVE N Bilirubin (test code = UBILI) NEGATIVE NEGATIVE N Ketones (test code = UKET) NEGATIVE NEGATIVE N Specific [place] (test code = 1.010 1.005-1.030 A USPGR) Blood (test code = UBLD) TRACE-LYSED NEGATIVE A PH (test code = UPH) 7.0 4.5-8.0 A Protein (test code = UPROT) NEGATIVE NEGATIVE N Urobilinogen (test code = U UROB) 0.2 >0.2 N Nitrite (test code = UNITR) NEGATIVE NEGATIVE N Leukocyte Esterase (test code = NEGATIVE NEGATIVE N ULEUK) WBC (test code = WBCUR) 0-2 0-5 A RBC (test code = RBCUR) 4-8 0-5 A Epithial Cells (test code = U 5-10 0-10 A EPI) Mucous (test code = UMUC) None Seen None Seen N Bacteria (test code = UBACT) 1+ None Seen,Trace A TROPONIN-I [id number] 20:24:00 Test Item Value Reference Range Interpretation Comments Troponin-I (test <0.012 ng/ml 0.000-0.034 N The 99th Pe rcentile URL code = TROP) is 0.034 ng/mL. The Joint Society of Cardiology/[facility] College of Card iology (ESC/ACC) and t [facility] of Clinical [place] grace Standards of La boratory Practices (NACB ) recommends that the diagnosis of AM I includes the presence of clinical history suggest fernanda of Acute Coronary Syndrome (ACS) and a max imum concentration o f cardiac troponin exceed ing the 99th percentile of a normal referenc e population [upp er reference limit (URL)] on at least one oc casion during the firs t 24 hours after the clini eber event. [id number] 20:24:00 Test Item Value Reference Range Interpretation Comments CPK (test code = CPK) 116 U/L 30-135 [id number] 20:13:00 Test Item Value Reference Range Interpretation Comments Glucose (test code 124 mg/dl 75-110 H = GLU) BUN (test code = 41.0 mg/dl 6.0-17.0 H BUN) Creatinine (test 1.2 mg/dl 0.4-1.2 code = CREA) Sodium (test code = 134 mmol/l 137-145 L NA) Potassium (test 3.8 mmol/l 3.5-5.0 code = K) Chloride (test code 90 mmol/l 98-107 L = CL) CO2 (test code = 33 mmol/l 22-30 H CO2) Anion Gap (test 11 code = GAP) Calcium (test code 9.6 mg/dl 8.4-10.2 = CALC) T Protein (test 7.4 gm/dl 5.1-8.7 code = TP) Albumin (test code 4.3 gm/dl 3.5-4.6 = ALB) A/G Ratio (test 1.4 % 1.1-2.2 code = AGRAT) AST (SGOT) (test 21 U/L 11-36 code = AST) ALT (SGPT) (test 35 U/L 11-40 code = ALT) Alkaline Phos (test 105 U/L 47-114 code = ALKP) Total Bilirubin 0.7 mg/dl 0.2-1.2 (test code = TBIL) Globulin (test code 3.1 gm/dl 2.3-3.5 = GLOBU) Calcium, Corrected 9.4 mg/dl 8.4-10.2 Various f ormulas exist (test code = for corrected s hortensia CALCCORR) calcium results , each yielding differ ent values. This corrected resul t was based on the fo rmula: Corrected Calci um = SerumCalcium + [0.8 * ( 4 - SerumAlbu min)] EGFR if >60 [place] (test code mL/min/1.73m\\ = EGFRAA) S\\2 EGFR if Non- >60 Estimate d Glomerular [place] (test code mL/min/1.73m\\ Filtrat ion Rate (eGFR) = EGFRNA) S\\2 Reference Inter vals Decision Points for 18 years and older and average body ma ss: >= 60 Does not exc lude kidney disease. 30 - 59 Suggests modera te chronic kidney disease and indicat es the need for furthe r investigation including asses sment of proteinuria and cardiovascular factors. < 30 Usually in dicates a need for refe rral for assessment and management of c hronic kidney failure. CBC WITH AUTO [id number] 20:08:00 Test Item Value Reference Range Interpretation Comments WBC (test code = WBC) 10.45 10\\S\\3/ul 4.80-10.80 RBC (test code = RBC) 5.02 10\\S\\6/ul 4.70-6.10 Hemoglobin (test code = HGB) 14.7 gm/dl 14.0-18.0 Hematocrit (test code = HCT) 42.6 % 42.0-50.0 MCV (test code = MCV) 84.9 fL 80.0-94.0 MCH (test code = MCH) 29.3 pg 27.0-31.0 MCHC (test code = MCHC) 34.5 gm/dl 33.0-37.0 RDW (test code = RDWVC) 14.3 % 11.5-14.5 Platelet (test code = PLT) 432 10\\S\\3/ul 130-400 H MPV (test code = MPV) 10.5 fL 7.4-10.4 A NE% (test code = NE) 63.3 % 42.0-75.0 LY% (test code = LY) 23.7 % 13.0-42.0 MO% (test code = MO) 7.7 % 4.0-14.0 EO% (test code = EO) 4.5 % 1.0-3.0 H BA% (test code = BA) 0.5 % 1.0-3.0 L IG% (test code = IG%) 0.3 % 0.0-0.4
[2021-05-10 17:17] LABS: Protime INR 0.97
[2021-05-10 17:18] LABS: Absolute Lymphocytes (CBC) 1.8 K/uL (0.7-4.9); Hematocrit 40.4 % (39.6-49.0); Lymphocytes % 11.1 % (15.3-44.8); RBC Red Blood Cell Count 4.53 M/uL (4.33-5.43)
[2021-05-10 17:27] LABS: ALT/SGPT 25 U/L (12-78); AST/SGOT 11 U/L (15-37); Albumin 3.5 g/dL (3.4-5.0); Alkaline Phosphatase 143 U/L (45-117); BUN Blood Urea Nitrogen 65 mg/dL (7-18); Bicarbonate 29 mmol/L (21-32); Bilirubin Direct < 0.1 mg/dL (0-0.2); Bilirubin Total 0.2 mg/dL (0.2-1.0); Glucose Level 196 mg/dL (74-106); Magnesium 1.8 mg/dL (1.8-2.4); NT PRO-BNP 44 pg/mL (<125); Potassium 3.7 mmol/L (3.5-5.1); Protein, Total 7.9 g/dL (6.4-8.2); Sodium Level 133 mmol/L (136-145); Troponin (Emerg Dept Use Only) < 0.02 ng/mL (0.0-0.045)
--- NOTE | 2021-05-10 17:53 | RAD REPORT ---
EXAM DESCRIPTION: Marley Single View05/10/2021 5:11 pm CLINICAL HISTORY: sob COMPARISON: none FINDINGS: The lungs appear clear of acute infiltrate. The heart is normal size IMPRESSION: No acute abnormalities displayed
[2021-05-10] MEDS ORDERED: NA CHLORIDE 0.9% 500 ML ONE (20:44)
--- NOTE | 2021-05-10 22:19 | ER ---
Nurse's Notes [facility] Name: Luke Moss Age: 55 yrs Sex: Male : 1965 Arrival Date: 05/10/2021 Time: 15:33 Bed 18 Private MD: Diagnosis: Dehydration;Unspecified hemorrhoids;Weakness Presentation: 05/10 16:34 Chief complaint: Chief complaint: Patient states: Blood in stool x 3 months ago, sent aa5 by Dr. Rice for increased SOB over the last 3 months. Coronavirus screen: shortness of breath. Ebola Screen: Patient negative for fever greater than or equal to 101.5 degrees Fahrenheit, and additional compatible Ebola Virus Disease symptoms. Onset of symptoms was 2020. 16:34 Acuity: SHELLY 3 aa5 16:34 Method Of Arrival: Wheelchair aa5 16:34 Risk Assessment: Do you want to hurt yourself or someone else? Patient reports no aa5 desire to harm self or others. 22:46 Initial Sepsis Screen: Does the patient meet any 2 criteria? No. Patient's initial ld1 sepsis screen is negative. Does the patient have a suspected source of infection? No. Patient's initial sepsis screen is negative. Historical: - Allergies: 16:37 Macrodantin; aa5 - Home Meds: 19:16 Lyrica Oral [Active]; potassium chloride Oral [Active]; Lisinopril Oral [Active]; vg1 Bumetanide Oral [Active]; indomethacin Oral [Active]; atorvastatin oral [Active]; Atenolol Oral [Active]; tizanidine oral [Active]; Victoza [Active]; - PMHx: 16:37 CHF; Atrial fibrillation; Hypertensive disorder; aa5 16:37 Neuropathy; aa5 19:16 COPD; Arthritis; Cellulitis; vg1 - PSHx: 16:37 Right hand; lower back; knee; aa5 - Immunization history:: Yves and Yves Flu vaccine is up to date. - Social history:: Smoking status: Patient reports the use of cigarette tobacco products, smokes one pack cigarettes per day. Screenin:11 Abuse screen: Denies threats or abuse. Nutritional screening: No deficits noted. vg1 Tuberculosis screening: No symptoms or risk factors identified. Fall Risk No fall in past 12 months (0 pts). No secondary diagnosis (0 pts). IV access (20 points). Ambulatory Aid- None/Bed Rest/Nurse Assist (0 pts). Gait- Normal/Bed Rest/Wheelchair (0 pts) Mental Status- Oriented to own ability (0 pts). Total [place]ano Fall Scale indicates No Risk (0-24 pts). Assessment: 18:02 General: Appears in no apparent distress. comfortable, Behavior is calm, cooperative. vg1 Pain: Denies pain. Neuro: Level of Consciousness is awake, alert, obeys commands, Oriented to person, place, time, situation, Reports dizziness, 'every once in awhile for about three months'. Cardiovascular: Patient's skin is warm and dry. Respiratory: Airway is patent Respiratory effort is even, unlabored, Parent/caregiver reports the patient having shortness of breath on exertion. GI: Reports rectal bleeding, bloody stool, since for about three months Patient currently denies diarrhea, nausea, vomiting. : No signs and/or symptoms were reported regarding the genitourinary system. EENT: No signs and/or symptoms were reported regarding the EENT system. Derm: Skin is intact, Skin is pink, warm \T\ dry. Musculoskeletal: Circulation, motion, and sensation intact. 19:12 Reassessment: Patient appears in no apparent distress at this time. No changes from vg1 previously documented assessment. Patient and/or family updated on plan of care and expected duration. Pain level reassessed. Patient is alert, oriented x 3, equal unlabored respirations, skin warm/dry/pink. 20:25 Reassessment: Patient appears in no apparent distress at this time. Patient and/or vg1 family updated on plan of care and expected duration. Pain level reassessed. Patient is alert, oriented x 3, equal unlabored respirations, skin warm/dry/pink. Patient denies pain at this time. 22:15 Reassessment: Patient appears in no apparent distress at this time. Patient and/or vg1 family updated on plan of care and expected duration. Pain level reassessed. Patient is alert, oriented x 3, equal unlabored respirations, skin warm/dry/pink. stated pain of 7/10, stated legs and feet are hurting, due to neuropathy. Vital Signs: 16:34 BP 119 / 64; Pulse 69; Resp 18 S; Temp 97.9(TE); Pulse Ox 96% on R/A; Weight 175.54 kg aa5 (R); Height 6 ft. 0 in. (182.88 cm) (R); Pain 10/10; 18:04 BP 132 / 66; Pulse 68; Resp 20; Pulse Ox 97% ; vg1 19:12 BP 159 / 84; Pulse 65; Resp 20; Pulse Ox 98% ; vg1 20:25 BP 142 / 80; Pulse 66; Resp 18; Pulse Ox 97% ; vg1 22:16 BP 135 / 58; Pulse 65; Resp 18; Pulse Ox 98% ; vg1 16:34 Body Mass Index 52.49 (175.54 kg, 182.88 cm) aa5 ED Course: 15:33 Patient arrived in ED. ds1 16:34 Arm band placed on. aa5 16:36 Triage completed. aa5 16:50 EKG completed in triage. Results shown to MD. aa5 16:50 Inserted saline lock: 20 gauge in left antecubital area, using aseptic technique. aa5 17:11 XRAY Chest (1 view) In Process Unspecified. EDMS 17:35 Jonathan Nino, GED TUTOR is PHCP. pm1 17:35 Harsha Pérez MD is Attending Physician. pm1 17:37 Daphney Franks RN is Primary Nurse. vg1 18:11 Patient has correct armband on for positive identification. Placed in gown. Bed in low vg1 position. Call light in reach. Side rails up X 1. 22:12 Report given to ALICE Haque. vg1 22:45 No provider procedures requiring assistance completed. IV discontinued, intact, ld1 bleeding controlled, No redness/swelling at site. Administered Medications: 20:25 Drug: NS 0.9% 500 ml Route: IV; Rate: bolus; Site: left antecubital; vg1 22:17 Follow up: IV Status: Completed infusion; IV Intake: 500ml vg1 22:15 Drug: morphine 4 mg Route: IVP; Site: left antecubital; vg1 Intake: 22:17 IV: 500ml; Total: 500ml. vg1 Outcome: 22:18 Discharge ordered by . pm1 22:46 Discharged to home ambulatory. ld1 22:46 Condition: stable 22:46 Discharge instructions given to patient, Instructed on discharge instructions, follow up and referral plans. Demonstrated understanding of instructions, follow-up care. 22:46 Patient left the ED. ld1 Signatures: Dispatcher [employer] EDIN Chelsea Lind ds1 Johanny Bradley, RN RN aa5 Jonathan Nino, LUPILLO GED TUTOR pm1 Daphney Franks RN RN vg1 Pamella De Leon RN RN ld1
--- NOTE | 2021-05-10 22:19 | EDPHYS ---
Physician Documentation [facility] Name: Luke Moss Age: 55 yrs Sex: Male : 1965 Arrival Date: 05/10/2021 Time: 15:33 Bed 18 Private MD: ED Physician Harsha Pérez HPI: 05/10 16:59 This 55 yrs old Male presents to ER via Wheelchair with complaints of pm1 Weakness, Dizziness, Shortness Of Breath, Chest Pain. 16:59 The patient presents to the emergency department with weakness of the entire body, pm1 generalized weakness. Onset: The symptoms/episode began/occurred 3 month(s) ago. Associated signs and symptoms: Pertinent positives: chest pain and shortness of breath. Bright red rectal bleeding from hemorrhoids, Pertinent negatives: chills, fever. Severity of symptoms: in the emergency department the symptoms are unchanged. Current symptoms: Currently, the patient is not experiencing any symptoms. The patient has been recently seen by a physician: the patient's primary care provider, with similar presenting complaints, and was sent to the [facility] Emergency Department for further evaluation. Patient presents to the ER with complaints of generalized weakness and shortness of breath and chest that has been going on for 3 months. Evaluated by his PCP this morning for the same complaints reported to him that he has been having some bright red rectal bleeding for the same duration of three months. PCP sent him to the ER for evaluation.. Historical: - Allergies: 16:37 Macrodantin; aa5 - Home Meds: 19:16 Lyrica Oral [Active]; potassium chloride Oral [Active]; Lisinopril Oral [Active]; vg1 Bumetanide Oral [Active]; indomethacin Oral [Active]; atorvastatin oral [Active]; Atenolol Oral [Active]; tizanidine oral [Active]; Victoza [Active]; - PMHx: 16:37 CHF; Atrial fibrillation; Hypertensive disorder; aa5 16:37 Neuropathy; aa5 19:16 COPD; Arthritis; Cellulitis; vg1 - PSHx: 16:37 Right hand; lower back; knee; aa5 - Immunization history:: Yves and Yves Flu vaccine is up to date. - Social history:: Smoking status: Patient reports the use of cigarette tobacco products, smokes one pack cigarettes per day. ROS: 16:59 Constitutional: Negative for fever, chills, and weight loss, Eyes: Negative for injury, pm1 pain, redness, and discharge. 16:59 Back: Negative for injury and pain, MS/Extremity: Negative for injury and deformity, Skin: Negative for injury, rash, and discoloration. 16:59 Cardiovascular: Positive for chest pain, Negative for edema, orthopnea, palpitations. 16:59 Respiratory: Positive for shortness of breath, on exertion. 16:59 Respiratory: Negative for cough, sputum production, wheezing. 16:59 Abdomen/GI: Positive for rectal bleeding, Negative for abdominal pain, nausea, vomiting, and diarrhea. 16:59 Neuro: Positive for weakness, Negative for dizziness, headache. 16:59 All other systems are negative. pm1 Exam: 16:59 Constitutional: This is a well developed, well nourished patient who is awake, alert, pm1 and in no acute distress. Head/Face: Normocephalic, atraumatic. Cardiovascular: Regular rate and rhythm with a normal S1 and S2. No gallops, murmurs, or rubs. Normal PMI, no JVD. No pulse deficits. Respiratory: Lungs have equal breath sounds bilaterally, clear to auscultation and percussion. No rales, rhonchi or wheezes noted. No increased work of breathing, no retractions or nasal flaring. 16:59 Back: No spinal tenderness. No costovertebral tenderness. Full range of motion. Skin: Warm, dry with normal turgor. Normal color with no rashes, no lesions, and no evidence of cellulitis. MS/ Extremity: Pulses equal, no cyanosis. Neurovascular intact. Full, normal range of motion. 16:59 Eyes: Exam is negative for acute changes, Periorbital structures: appear normal, Extraocular movements: no acute changes, Sclera: no acute changes, icterus, is not appreciated. 16:59 ENT: Exam is negative for acute changes, Mouth: Lips: normal, Oral mucosa: normal, pink and intact, moist. 16:59 Abdomen/GI: Inspection: obese Palpation: abdomen is soft and non-tender, in all quadrants. 16:59 Neuro: Exam negative for acute changes, Orientation: is normal, Mentation: is normal, Motor: is normal, moves all fours. Vital Signs: 16:34 BP 119 / 64; Pulse 69; Resp 18 S; Temp 97.9(TE); Pulse Ox 96% on R/A; Weight 175.54 kg aa5 (R); Height 6 ft. 0 in. (182.88 cm) (R); Pain 10/10; 18:04 BP 132 / 66; Pulse 68; Resp 20; Pulse Ox 97% ; vg1 19:12 BP 159 / 84; Pulse 65; Resp 20; Pulse Ox 98% ; vg1 20:25 BP 142 / 80; Pulse 66; Resp 18; Pulse Ox 97% ; vg1 22:16 BP 135 / 58; Pulse 65; Resp 18; Pulse Ox 98% ; vg1 16:34 Body Mass Index 52.49 (175.54 kg, 182.88 cm) aa5 MDM: 17:35 Patient medically screened. pm1 22:10 Physician consultation: MD Israel regarding consult, patient's condition, and will see pm1 patient in office, Patient with baseline chronic renal issues. Patient does require admission to the hospital however patient does not have a suspect artist. Based on labs patient appears dry from diuretics for chf. Contacted Dr. Argueta to establish a suspect artist for patient follow up. 22:15 Data reviewed: vital signs. Data interpreted: Pulse oximetry: on room air is 97 %. pm1 Interpretation: normal. Counseling: I had a detailed discussion with the patient and/or guardian regarding: the historical points, exam findings, and any diagnostic results supporting the discharge/admit diagnosis, lab results, radiology results, the need for outpatient follow up, Nephrology. 05/10 16:41 Order name: Basic Metabolic Panel; Complete Time: 17:36 5 05/10 16:41 Order name: CBC with Diff; Complete Time: 17:36 aa05/10 16:41 Order name: LFT's; Complete Time: 17:36 aa05/10 16:41 Order name: Magnesium; Complete Time: 17:36 aa05/10 16:41 Order name: NT PRO-BNP; Complete Time: 17:36 aa05/10 16:41 Order name: PT-INR; Complete Time: 17:36 aa05/10 16:41 Order name: Troponin (emerg Dept Use Only); Complete Time: 17:36 aa05/10 16:41 Order name: XRAY Chest (1 view); Complete Time: 18:00 aa5 05/10 16:41 Order name: EKG - Nurse/Tech; Complete Time: 16:54 aa5 05/10 16:41 Order name: IV; Complete Time: 16:54 aa5 05/10 22:15 Order name: CONS Physician Consult EDMS Administered Medications: 20:25 Drug: NS 0.9% 500 ml Route: IV; Rate: bolus; Site: left antecubital; vg1 22:17 Follow up: IV Status: Completed infusion; IV Intake: 500ml vg1 22:15 Drug: morphine 4 mg Route: IVP; Site: left antecubital; vg1 Disposition: 05/11 07:05 Co-signature as Attending Physician, Harsah Pérez MD I agree with the assessment and chivo plan of care. Disposition Summary: 05/10/21 22:18 Discharge Ordered Location: Home pm1 Problem: new pm1 Symptoms: have improved pm1 Condition: Stable pm1 Diagnosis - Dehydration pm1 - Unspecified hemorrhoids pm1 - Weakness pm1 Followup: pm1 - With: Emergency Department - When: As needed - Reason: Worsening of condition Followup: pm1 - With: Private Physician - When: 2 - 3 days - Reason: Recheck today's complaints, Continuance of care, Re-evaluation by your physician Discharge Instructions: - Discharge Summary Sheet pm1 - Weakness pm1 - Fatigue pm1 - Hemorrhoids, [id number] pm1 - Acute Kidney Injury, Adult pm1 - Chronic Kidney Disease, Adult pm1 Forms: - Medication Reconciliation Form pm1 - Thank You Letter pm1 - Antibiotic Education pm1 - Prescription Opioid Use pm1 Signatures: Dispatcher [employer] EDHarsha Polk MD MD cha Calderon, Audri, RN RN aa5 Jonathan Nino, LUPILLO CREDIT REPORTER pm1 Daphney Franks, RN RN vg1
[2021-05-10] MEDS ORDERED: NA CHLORIDE 0.9% 1,000 ML ONE (22:34)
[2021-05-10] MEDS ORDERED: MORPHINE 4 MG/ML SYR ONE (22:34)
[2021-05-10 23:08] VITALS: TEMP 97.9
[2021-05-10 23:14] VITALS: BP 135/58; O2SAT 98
--- NOTE | 2021-05-11 17:00 | EKG ---
Test Date: 2021-05-10 Test Time: 16:44:00 Mid Level Provider: SEBASTIÁN MEASUREMENT RESULTS: Intervals: Rate: 69 TN: 166 QRSD: 90 QT: 408 QTc: 437 [place]: P: 57 TN: 166 QRS: 39 T: 49 INTERPRETIVE STATEMENTS: Normal sinus rhythm Normal ECG No previous ECG available for comparison Electronically Signed On 05-11-21 16:58:54 CDT by Horace Lawton
== END 2021-05-10 22:46 | disposition home or self-care (01) ==
LOC: ER 15:27
DX: E86.0 Dehydration (principal); K64.9 Unspecified hemorrhoids; I10 Essential (primary) hypertension; F17.210 Nicotine dependence, cigarettes, uncomplicated; Z88.1 Allergy status to other antibiotic agents
CPT/HCPCS: 93005; 85025; 80048; 36415; 83735; 85610; 80076; 84484; 83880; 71045; J7040; J7030; 96361; 96374; 99284